=== PATIENT | female | born 1980 | race Caucasian/White ===

== ENCOUNTER 2016-03-19 15:30 | Outpatient (RCR) | payer OTHER ==
[~2016-03-19 15:30] MED LIST: ALAVERT10 M1 PO; ALDACTONE 25MG25 M1 PO; DULCOLAX TAB5 MG PO; INDOCIN 25MG CA25 MG PO; LINZESS290CAP PO; LORTAB 5/500 501 TAB PO; MOBIC15 MG PO; MULTIPLE VITAMI1 CAP PO; NORCO 325 MG-51 TAB PO; PRENATAL VITAMI1 TA5 PO; VITAMIN B COMPL1 T16 PO
[2016-03-20] MEDS ORDERED: NORCO 325 MG-7.1 TAB PO (20:58)
== END 2016-05-15 | disposition home or self-care (01) ==
LOC: WSPT
DX: M54.2 Cervicalgia (principal); R25.3 Fasciculation; R55 Syncope and collapse

== ENCOUNTER 2016-03-20 18:29 | Emergency (ER) | payer OTHER ==
[~2016-03-20] VITALS: Ht 165.1 cm; Wt 109.1 kg
[2016-03-20 18:36] VITALS: TEMP 98
[2016-03-20 19:17] LABS: PH 5 (5-8); SQUAMOUS EPITHELIAL 0-2 /hpf; URINE APPEARANCE Clear; URINE BACTERIA None Seen /hpf; URINE BILIRUBIN Negative (NEGATIVE); URINE BLOOD Negative (NEGATIVE); URINE COLOR Yellow; URINE GLUCOSE Negative (NEGATIVE); URINE KETONE 1+ (NEGATIVE); URINE RBC 0-2 /hpf; URINE UROBILINOGEN Negative (NEGATIVE); URINE WBC 0-2 /hpf
[2016-03-20] MEDS ORDERED: NORCO 325 MG-7.1 TAB PO (20:58)
[2016-03-20 21:09] VITALS: BP 126/80; PULSE 80
== END 2016-03-20 21:10 | disposition home or self-care (01) ==
LOC: COL.ER 18:29
PROVIDERS: Nurse Practitioner
DX: S39.012A Strain of muscle, fascia and tendon of lower back, initial encounter (principal); S09.90XA Unspecified injury of head, initial encounter; S00.81XA Abrasion of other part of head, initial encounter; V43.52XA Car driver injured in collision with other type car in traffic accident, initial encounter; Y92.414 Local residential or business street as the place of occurrence of the external cause